=== PATIENT | male | born 1965 | race Caucasian/White ===

== ENCOUNTER 2016-12-30 13:38 | Emergency (ER) | payer OTHER ==
[~2016-12-30 13:38] MED LIST: AMLODIPINE BESY10 MG PO; CELEXA20 MG PO; LISINOPRIL10 MG PO; MELOXICAM15 MG PO; NORCO 5-325 TA1 EACH PO; PERCOCET 10-321 EACH PO; VOLTAREN100 GM TOP
[2016-12-30] MEDS ORDERED: SERTRALINE HCL100 MG PO (13:43)
[2016-12-30] MEDS ORDERED: METOPROLOL TART25 MG PO (13:43)
== END 2016-12-30 14:02 | disposition home or self-care (01) ==
LOC: ED 13:38
DX: Z00.8 Encounter for other general examination (principal)

== ENCOUNTER 2017-05-19 15:01 | Emergency (ER) | payer OTHER ==
[~2017-05-19] VITALS: Ht 195.6 cm; Wt 127.0 kg
[~2017-05-19 15:01] MED LIST changes: +METOPROLOL TART25 MG PO; +SERTRALINE HCL100 MG PO
== END 2017-05-19 15:28 | disposition home or self-care (01) ==
LOC: ED 15:01
DX: Z00.8 Encounter for other general examination (principal)

== ENCOUNTER 2017-08-14 15:30 | Emergency (ER) | payer OTHER ==
[~2017-08-14] VITALS: Ht 195.6 cm; Wt 127.0 kg
[2017-08-14] MEDS ORDERED: ZITHROMAX250 MG PO (15:55)
== END 2017-08-14 16:01 | disposition home or self-care (01) ==
LOC: ED 15:30
DX: J32.9 Chronic sinusitis, unspecified (principal); I10 Essential (primary) hypertension; F32.9 Major depressive disorder, single episode, unspecified; F41.9 Anxiety disorder, unspecified; F17.200 Nicotine dependence, unspecified, uncomplicated; Z88.2 Allergy status to sulfonamides; Z79.899 Other long term (current) drug therapy
CPT/HCPCS: 99283

== ENCOUNTER 2017-08-17 12:34 | Emergency (ER) | payer OTHER ==
[~2017-08-17] VITALS: Ht 195.6 cm; Wt 127.0 kg
[~2017-08-17 12:34] MED LIST changes: +ZITHROMAX250 MG PO
== END 2017-08-17 13:44 | disposition home or self-care (01) ==
LOC: ED 12:34
DX: R10.9 Unspecified abdominal pain (principal); K13.79 Other lesions of oral mucosa; I10 Essential (primary) hypertension; F32.9 Major depressive disorder, single episode, unspecified; F41.9 Anxiety disorder, unspecified; F17.200 Nicotine dependence, unspecified, uncomplicated; Z88.2 Allergy status to sulfonamides; Z79.899 Other long term (current) drug therapy; Z79.2 Long term (current) use of antibiotics
CPT/HCPCS: 81001; 99283

== ENCOUNTER → 2018-11-27 | Emergency (ER) | payer OTHER ==
[~2018-11-27] VITALS: Ht 195.6 cm; Wt 127.0 kg
[~2018-11-27] MED LIST changes: +SUBOXONE 2 MG-1 EAC2 SL
--- OUTSIDE RECORDS SUMMARY | 2018-11-27 06:08 | XMS ---
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 Current Orthopedic Surgery \T\ Fract[facility] PHONE: Unknown Sarbjit has no Care Guidelines for this patient. EMuriel VISIT COUNT (12 MO.) 1 [place] TOTAL 1 NOTE: Visits indicate total known visits. ED/UCC VISIT TRACKING (12 MO.) 11/27/2018 06:06 [facility] OR TYPE: Emergency COMPLAINT: - CHEST PAIN INPATIENT VISIT TRACKING (12 MO.) No inpatient visits to display in this time frame [email or web address]
--- NOTE | 2018-11-27 20:38 | EKG ---
[facility] [address] [place] [address] Signed Sinus bradycardia Rightward axis Borderline ECG No previous ECGs available Confirmed by ESTELLA MASON MD ([id number]) on 11/27/2018 8:38:48 PM Electronically Signed By: ESTELLA MASON MD 11/27/18 2038 PATIENT NAME: NATALIA SINGH Electrocardiogram DATE OF : 63 PHYSICIAN: ESTELLA MASON MD REPORT #: [id number] REPORT IS CONFIDENTIAL AND NOT TO BE RELEASED WITHOUT AUTHORIZATION
== END ==
LOC: ED 06:05
DX: R07.89 Other chest pain (principal); I10 Essential (primary) hypertension; Z86.19 Personal history of other infectious and parasitic diseases; F32.9 Major depressive disorder, single episode, unspecified; F41.9 Anxiety disorder, unspecified; F17.200 Nicotine dependence, unspecified, uncomplicated; Z88.2 Allergy status to sulfonamides; Z79.899 Other long term (current) drug therapy
CPT/HCPCS: 71046; 80053; 83735; 84484; 85025; 93005; 93010; 96374; 99285-25; J1885

== ENCOUNTER 2020-10-26 09:53 | Emergency (ER) | payer OTHER ==
[~2020-10-26] VITALS: Ht 195.6 cm; Wt 122.5 kg
--- NOTE | 2020-10-26 22:48 | EKG ---
[facility] [address] [place], [place] [address] Signed Marked sinus bradycardia Abnormal ECG When compared with ECG of 27-NOV-2018 06:11, Questionable change in QRS axis Confirmed by AIMEE PITTS MD ([id number]) on 10/26/2020 10:48:03 PM Electronically Signed By: AIMEE PITTS MD 10/26/20 2248 PATIENT NAME: NATALIA SINGH Electrocardiogram DATE OF : 63 PHYSICIAN: AIMEE PITTS MD REPORT #: [id number] REPORT IS CONFIDENTIAL AND NOT TO BE RELEASED WITHOUT AUTHORIZATION
== END 2020-10-26 12:00 | disposition home or self-care (01) ==
LOC: ED 09:53
DX: R10.9 Unspecified abdominal pain (principal); I10 Essential (primary) hypertension; F17.200 Nicotine dependence, unspecified, uncomplicated; Z88.2 Allergy status to sulfonamides; Z79.899 Other long term (current) drug therapy
CPT/HCPCS: 74176; 80053; 81001; 83735; 84484; 85025; 93005; 93010; 96374; 99284-25; 99406; J1885; J7030

== ENCOUNTER 2021-08-20 15:05 | Emergency (ER) | payer OTHER ==
[~2021-08-20] VITALS: Ht 195.6 cm; Wt 122.5 kg
--- OUTSIDE RECORDS SUMMARY | 2021-08-20 15:08 | XMS ---
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 E.DKvng VISIT COUNT (12 MO.) 2 [place] Rose TOTAL 2 NOTE: Visits indicate total known visits. ED/UCC VISIT TRACKING (12 MO.) 08/20/2021 15:06 [facility] OR TYPE: Emergency COMPLAINT: - FALL/L ARM NUMBNESS 10/26/2020 09:54 [facility] OR TYPE: Emergency COMPLAINT: - L FLANK PAIN DIAGNOSES: - Essential (primary) hypertension - Nicotine dependence, unspecified, uncomplicated - Unspecified abdominal pain - Allergy status to sulfonamides - Other correction (current) drug therapy INPATIENT VISIT TRACKING (12 MO.) No inpatient visits to display in this time frame [email or web address]
== END 2021-08-20 18:36 | disposition home or self-care (01) ==
LOC: ED 15:05
DX: S60.222A Contusion of left hand, initial encounter (principal); R53.1 Weakness; I10 Essential (primary) hypertension; F17.200 Nicotine dependence, unspecified, uncomplicated; Z88.2 Allergy status to sulfonamides; Z79.899 Other long term (current) drug therapy; W00.0XXA Fall on same level due to ice and snow, initial encounter; Y92.512 Supermarket, store or market as the place of occurrence of the external cause; Y99.0 Civilian activity done for income or pay
CPT/HCPCS: 73130; 99283-25

== ENCOUNTER 2022-01-12 22:13 | Emergency (ER) | payer OTHER ==
[~2022-01-12] VITALS: Ht 195.6 cm; Wt 122.5 kg
--- OUTSIDE RECORDS SUMMARY | 2022-01-12 22:16 | XMS ---
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 E.DKvng VISIT COUNT (12 MO.) 2 [place] Rose TOTAL 2 NOTE: Visits indicate total known visits. ED/UCC VISIT TRACKING (12 MO.) 01/12/2022 22:14 [facility] OR TYPE: Emergency COMPLAINT: - VISION PROBLEM 08/20/2021 15:06 [facility] OR TYPE: Emergency COMPLAINT: - FALL/L ARM NUMBNESS DIAGNOSES: - Fall on same level due to ice and snow, initial encounter - Weakness - Essential (primary) hypertension - Contusion of left hand, initial encounter - Other specified soft tissue disorders - Civilian activity done for income or pay - Supermarket, store or market as the place of occurrence of the external cause - Allergy status to sulfonamides - Other medical terminologist (current) drug therapy - Nicotine dependence, unspecified, uncomplicated INPATIENT VISIT TRACKING (12 MO.) No inpatient visits to display in this time frame [email or web address]
== END 2022-01-12 23:32 | disposition home or self-care (01) ==
LOC: ED 22:13
DX: H54.62 Unqualified visual loss, left eye, normal vision right eye (principal); I10 Essential (primary) hypertension; F17.200 Nicotine dependence, unspecified, uncomplicated; Z88.1 Allergy status to other antibiotic agents; Z88.2 Allergy status to sulfonamides; Z79.899 Other long term (current) drug therapy
CPT/HCPCS: 99283